=== PATIENT | male | born 1985 | race Caucasian/White ===

== ENCOUNTER 2019-01-20 03:18 | Emergency (ER) | payer OTHER ==
[~2019-01-20] VITALS: Ht 167.6 cm; Wt 70.0 kg
[2019-01-20] MEDS ORDERED: IBUPROFEN 600MG TABLET PO ONE (05:30)
[2019-01-20 05:53] VITALS: BP 108/62
== END 2019-01-20 05:55 | disposition home or self-care (01) ==
LOC: ER 03:39
DX: S40.011A Contusion of right shoulder, initial encounter (principal); S00.431A Contusion of right ear, initial encounter; W18.30XA Fall on same level, unspecified, initial encounter; Y93.89 Activity, other specified; Y92.89 Other specified places as the place of occurrence of the external cause; Y99.8 Other external cause status
CPT/HCPCS: 73030; 99284